=== PATIENT | male | born 1960 | race Caucasian/White ===

== ENCOUNTER 2020-07-17 14:27 | Emergency (ER) | payer MEDICAID ==
[~2020-07-17] VITALS: Ht 167.6 cm; Wt 86.2 kg
--- NOTE | 2020-07-17 14:27 | NUR ---
PT BROUGHT IN BY AMBULANCE AND ASSISTED TO HOSPITAL BED VIA 2 PERSON SHEET MOVE.
[2020-07-17 14:28] VITALS: BP 157/98
--- NOTE | 2020-07-17 14:30 | NUR ---
Note undone in EDM - 07/17/20 at 1445 by [facility] 59 Y/O BIBA WITH A C/C OF ALOC/AGITATION. PER [facility] ([facility] CREW, PATIENT WAS FOUND LAYING ON THE GROUND A FEW BLOCKS FROM HIS HOME. EMS STATED HE HAD GOTTEN INTO AN ARGUMENT AND ADMITTED TO SMOKING "SPIKE DUST." PT STATES HE DRANK (2) 24OZ BEERS PRIOR TO ARRIVAL. PT DENIES ANY OTHER DRUG USE, CHEST PAIN, SOB, ABDOMINAL PAIN. [facility] STATES NEIGHBORS SPRAYED HIM WITH WATER PRIOR TO ARRIVAL. PT PLACED ONTO PUNCH PRESS OPERATOR HELPER. BED LOCKED IN LOWEST POSITION, SIDE RAILS X 1, CALL LIGHT IN REACH Hx DEPRESSION, POLYSUBSTANCE ABUSE, ASTHMA MEDS: SERTRALINE, UNABLE TO OBTAIN OTHER MEDS ALLERGIES: DENIES
--- NOTE | 2020-07-17 14:30 | NUR ---
59 Y/O BIBA WITH A C/C OF ALOC/AGITATION. PER [facility] CREW, PATIENT WAS FOUND LAYING ON THE GROUND A FEW BLOCKS FROM HIS HOME. EMS STATED HE HAD GOTTEN INTO AN ARGUMENT WITH HIS AND ADMITTED TO SMOKING "SPIKE DUST." PT ALSO STATES HE DRANK (2) 24OZ BEERS PRIOR TO ARRIVAL. PT DENIES ANY OTHER DRUG USE, CHEST PAIN, SOB, ABDOMINAL PAIN, DIZZINESS. [facility] STATES NEIGHBORS SPRAYED HIM WITH WATER PRIOR TO ARRIVAL. PT PLACED ONTO REVENUE SPECIALIST. BED LOCKED IN LOWEST POSITION, SIDE RAILS X 1, CALL LIGHT IN REACH Hx DEPRESSION, POLYSUBSTANCE ABUSE, ASTHMA MEDS: SERTRALINE, UNABLE TO OBTAIN OTHER MEDS ALLERGIES: DENIES
--- NOTE | 2020-07-17 14:45 | NUR ---
DR. AVILA IS EVALUATING PATIENT AT BEDSIDE.
--- NOTE | 2020-07-17 15:43 | NUR ---
PT RESTING IN POSITION OF COMFORT AND STATES "I FEEL A LOT BETTER RIGHT NOW AND DON'T WANT TO TAKE UP A BED AND WANT TO GO HOME." ERMD MADE AWARE OF REQUEST; ADVISED TO HAVE PATIENT WALK A FEW LAPS TO ENSURE BALANCE IS THERE. PT ANSWERED ALL A&O QUESTIONS APPROPRIATELY AT THIS TIME.
--- NOTE | 2020-07-17 15:44 | NUR ---
CONTACTED VIA TELEPHONE AFTER PT GAVE VERBAL CONSENT; GAVE STATUS UPDATE OF PATIENT AND PLAN TO DISCHARGE. STATES SHE WILL COME PICK HIM UP; 8-10 MINUTE ETA AT THIS TIME.
[2020-07-17 15:52] VITALS: BP 127/52
--- NOTE | 2020-07-17 15:52 | NUR ---
Patient discharged with v/s stable. Written and verbal after care instructions given and explained. Patient verbalized understanding. Ambulatory with steady gait. All questions addressed prior to discharge. Advised to follow up with PMD.
== END 2020-07-17 15:52 | disposition home or self-care (01) ==
LOC: MED 14:27
DX: F10.129 Alcohol abuse with intoxication, unspecified (principal); Y90.9 Presence of alcohol in blood, level not specified
CPT/HCPCS: 99283